=== PATIENT | male | born 1975 | race African-American/Black ===

== ENCOUNTER 2021-04-23 16:21 | Inpatient (IN) ==
[2021-04-23 17:14] LABS: Basophils % 0.4 % (0.0-0.8); Eosinophils # 0.2 10*3/uL (0.0-0.87); Hematocrit 40.5 VOL% (42.0-52.0); Hemoglobin 13.2 GM/DL (14.0-18.0); Immature Granulocytes % 0.3 %; Immature Granulocytes Absolute 0.03 #; Lymphocytes # 1.6 10*3/uL (1.4-4.0); Lymphocytes % 16.8 % (21.2-54.2); Mean Corpuscular HGB Conc 32.6 GM/DL (32-36); Mean Corpuscular Volume 91.4 FL (87-102); Mean Platelet Volume 9.9 FL (9.6-12.0); Monocytes % 10.5 % (1.7-12.7); Platelet Count 236 T/CUMM (130-400); Red Blood Count 4.43 MC/CUMM (3.8-5.5); Red Cell Distribution Width 13.5 % (9.3-17.3); White Blood Count 9.7 T/CUMM (4-12)
[2021-04-23 17:33] LABS: Alanine Aminotransferase 22 U/L (16-61); Albumin 3.6 G/DL (3.4-5.0); Alkaline Phosphatase 69 U/L (45-117); Aspartate Amino Transferase 19 U/L (0-37); Bilirubin,Total < 0.39 MG/DL (0.20-1.00); Blood Urea Nitrogen 17 MG/DL (7-18); Calcium 8.8 MG/DL (8.5-10.1); Carbon Dioxide 25 MMOL/L (21-32); Estimated Glom Filtration Rate 94 ML/MIN; Glucose 111 MG/DL (74-106); Osmolality,Calculated 283.3 MOS/KG (273-304); Potassium 3.5 MMOL/L (3.5-5.1); Sodium 141 MMOL/L (136-145); Total Protein 8.1 G/DL (6.4-8.2)
[2021-04-23 17:41] LABS: Bilirubin,Urine Negative (Negative); Blood, Urine Negative (Negative); Glucose,Urine (UA) Negative (Negative); Hyaline Casts,Urine 1 /LPF (0-3); Ketones,Urine Negative (Negative); Mucus,Urine Occasional /LPF (Occasional); Nitrite,Urine Negative (Negative); Protein,Urine Negative; RBC,Urine 2 /HPF (0-4); Squamous Epithelial Cell,Urine Occasional /HPF (0-10); Urine Appearance CLEAR (Clear); Urine Color Yellow (Yellow); Urine Specific Gravity 1.027 (1.001-1.035); Urine Urobilinogen < 2.0 EU/DL (<2.0)
[2021-04-23] MEDS ORDERED: CLINDAMYCIN INJ 900 MG/50 ML PREMIX IV STA (17:47)
[2021-04-23] MEDS ORDERED: ACETAMINOPHEN 325 MG TABLET PO PRN (19:37)
[2021-04-23] MEDS ORDERED: ONDANSETRON 4 MG/2 ML VIAL IV PRN (19:37)
[2021-04-23] MEDS ORDERED: MORPHINE 2 MG/1 ML SYRINGE IV PRN (19:37)
[2021-04-23] MEDS ORDERED: NICOTINE 21 MG/24 HR PATCH TRANSDERM PRN (19:37)
[2021-04-23] MEDS ORDERED: GLUCAGON 1 MG VIAL IM PRN (19:37)
[2021-04-23] MEDS ORDERED: LACTULOSE 20 GM/30 ML UDCUP PO PRN (19:37)
[2021-04-23] MEDS ORDERED: DEXTROSE 10% 25 GM/250 ML BAG IV PRN (19:41)
[2021-04-23] MEDS ORDERED: SODIUM CHLORIDE 0.9% 1,000 ML IV SCH (20:00)
[2021-04-23 20:55] LABS: Hepatitis B Surface Ag Quant < 0.10 Index; Hepatitis B Surface Ag Result Non-Reactive (NonReactive); Hepatitis C Virus Ab Quant 0.07 Index; Hepatitis C Virus Ab Result Non-Reactive (NonReactive)
[2021-04-23] MEDS: PIPERACILLIN/TAZOBACTAM 3,375 MG in SODIUM CHLORIDE 0.9% 100 ML IV SCH (21:00)
[2021-04-23] MEDS: ENOXAPARIN 40 MG/0.4 ML SYRINGE SUBCUT SCH (21:17)
[2021-04-23 21:21] LABS: HIV Antigen/Antibody Result Nonreactive (Nonreactive)
[2021-04-23] MEDS: DOCUSATE SODIUM 100 MG CAPSULE PO SCH (21:33)
[2021-04-23] MEDS ORDERED: ceFAZolin 2,000 MG in SODIUM CHLORIDE 0.9% 100 ML IV ONE (22:00)
[2021-04-24] MEDS: PIPERACILLIN/TAZOBACTAM 3,375 MG in SODIUM CHLORIDE 0.9% 100 ML IV SCH ×3 (06:32→23:49)
[2021-04-24 06:33] LABS: Basophils # 0.1 10*3/uL (0.0-0.2); Basophils % 0.7 % (0.0-0.8); Eosinophils # 0.2 10*3/uL (0.0-0.87); Eosinophils % 2.5 % (0.00-10.9); Hematocrit 41.7 VOL% (42.0-52.0); Hemoglobin 13.2 GM/DL (14.0-18.0); Immature Granulocytes % 0.2 %; Immature Granulocytes Absolute 0.02 #; Lymphocytes # 1.6 10*3/uL (1.4-4.0); Lymphocytes % 18.5 % (21.2-54.2); Mean Corpuscular HGB Conc 31.7 GM/DL (32-36); Mean Corpuscular Volume 93.3 FL (87-102); Mean Platelet Volume 11.3 FL (9.6-12.0); Monocytes % 13.2 % (1.7-12.7); Neutrophils % 64.9 % (38.7-73.9); Platelet Count 232 T/CUMM (130-400); Red Blood Count 4.47 MC/CUMM (3.8-5.5); Red Cell Distribution Width 13.7 % (9.3-17.3); White Blood Count 8.5 T/CUMM (4-12)
[2021-04-24 06:54] LABS: Albumin 3.1 G/DL (3.4-5.0); Bilirubin,Total 0.4 MG/DL (0.20-1.00); Calcium 8.6 MG/DL (8.5-10.1); Osmolality,Calculated 284.1 MOS/KG (273-304); Potassium 3.6 MMOL/L (3.5-5.1); Risk Ratio 2.83; Total Protein 7.3 G/DL (6.4-8.2); VLDL Cholesterol 17.2 MG/DL
[2021-04-24] MEDS: PANTOPRAZOLE 40 MG TABLET PO SCH (09:03)
[2021-04-24] MEDS: DOCUSATE SODIUM 100 MG CAPSULE PO SCH ×2 (09:03→23:48)
[2021-04-24] MEDS ORDERED: LIDOCAINE 2% 5 ML VIAL ONE (11:56)
[2021-04-24] MEDS ORDERED: SEVOFLURANE 1 UNIT/15 MINUTE INH ONE (11:56)
[2021-04-24] MEDS ORDERED: fentaNYL 100 MCG/2 ML VIAL ONE (11:56)
[2021-04-24] MEDS ORDERED: propofoL 200 MG/20 ML VIAL IV ONE (11:56)
[2021-04-24] MEDS ORDERED: MIDAZOLAM 2 MG/2 ML VIAL ONE (12:12)
[2021-04-24] MEDS ORDERED: ePHEDrine 50 MG/ML VIAL ONE (12:22)
[2021-04-24] MEDS ORDERED: LACTATED RINGERS 1,000 ML IV SCH (12:30)
[2021-04-24] MEDS ORDERED: ONDANSETRON 4 MG/2 ML VIAL ONE (12:40)
[2021-04-24] MEDS ORDERED: DEXAMETHASONE 4 MG/1 ML VIAL ONE (12:40)
[2021-04-24] MEDS: ENOXAPARIN 40 MG/0.4 ML SYRINGE SUBCUT SCH (23:48)
[2021-04-25] MEDS: PIPERACILLIN/TAZOBACTAM 3,375 MG in SODIUM CHLORIDE 0.9% 100 ML IV SCH (05:09)
[2021-04-25 08:26] VITALS: BP 147/84
[2021-04-25] MEDS: DOCUSATE SODIUM 100 MG CAPSULE PO SCH (11:57)
[2021-04-25] MEDS: PANTOPRAZOLE 40 MG TABLET PO SCH (11:57)
== END 2021-04-25 11:50 | disposition home or self-care (01) | DRG 717 ==
LOC: N.ED 16:21 → N.5E 16:21 → SUATTDRO 20:16 → N.5E 22:51 → SUATTDRO 04-24 08:32
PROVIDERS: ADMIT Internal Medicine; ATTEND Internal Medicine